=== PATIENT | female | born 1965 | race Caucasian/White ===

== ENCOUNTER 2016-10-15 13:29 | Emergency (ER) | payer BC ==
[~2016-10-15] VITALS: Ht 167.6 cm; Wt 57.1 kg
[2016-10-15 13:32] VITALS: TEMP 36.9; Ht 167.6 cm; Wt 57.1 kg
--- NOTE | 2016-10-15 15:09 | EMERGENCY ROOM VISIT NOTE ---
History Report prepared by Dainaa: Johnathon Mathew Under the Supervision of: Dr. Antonio Cherry M.D. First contact with patient: 14:50 Chief Complaint: OTHER COMPLAINT Stated Complaint: LIGHTHEADEDNESS,FACE NUMBING,SHOULDER PAIN History of Present Illness The patient is a 51 year old female with anxiety disorder who presents to the Emergency Room with complaints of worsening lightheadedness that started the past 2 days. She says that her daughter was in the hospital a few weeks ago, and shortly thereafter, the patient fainted one night and hit her tailbone. She did not hit her head. She says that she slumped down against a wall. Ever since then, the patient says that she has had off and on lightheadedness, but it has worsened and become more constant the past few days. The patient was not able to sleep much the past few nights, and had to take NyQuil one night. She says that she took a cup of coffee this morning without anything to eat. She did eat lunch and it did not help her. The patient also notes numbness in the middle of her face, pain around her left shoulder, and a cold feeling in her feet and hands. She says that she has never had symptoms like this before. The patient denies any shortness of breath or chest pain. She has eaten okay other than today. The patient takes Cymbalta for her anxiety. She has not been in any recent car accidents and has not had any recent trauma. Source of History: patient Onset: Past 2 days Position: other (global - lightheadedness) Timing: worsening Associated Symptoms: + numbness (middle of face), No SOB, No chest pain Note: Associated symptoms: Fainted a few weeks ago. Pain around left shoulder, cold feeling in feet and hands. Feels anxious currently. Review of Systems See HPI for pertinent positives & negatives. A total of 10 systems reviewed and were otherwise negative. Past Medical & Surgical Medical Problems: (1) No chronic problems (2) Skin problem Surgical Problems: (1) H/O: hysterectomy Family History FHx: cancer FHx: heart disease Hypertension Social History Smoking Status: Never Smoker Smokeless Tobacco Use: No Alcohol Use: occasionally Marital Status: Housing Status: lives with family Occupation Status: unemployed Current/Historical Medications Scheduled Duloxetine Hcl (Cymbalta), 60 MG PO DAILY Ivermectin (Rosacea) (Soolantra), 1 APPLN TOP DAILY Methenamine Hippurate (Methenamine Hippurate), 1 GM PO BID Puztrqtedwnzr-Jhzoxwyodw-Ietyb (Vicks Nyquil Severe Cold), 1 DOSE PO HS Ranitidine (Zantac), 300 MG PO HS Trazodone Hcl (Desyrel), 75 MG PO HS Allergies Coded Allergies: No Known Allergies (Unverified , 10/15/16) Physical Exam Vital Signs Date Time Temp Pulse Resp B/P Pulse Ox O2 Delivery O2 Flow Rate FiO2 10/15/16 16:49 65 19 136/84 97 10/15/16 15:57 68 16 152/87 99 Room Air 10/15/16 15:07 84 14 136/82 99 Room Air 10/15/16 13:32 36.9 90 18 162/83 98 Room Air Physical Exam GENERAL: Patient is anxious appearing, in minimal distress. HEENT: No acute trauma, normocephalic atraumatic, mucous membranes moist, no nasal congestion, no scleral icterus. NECK: No stridor, no adenopathy, no meningismus, trachea is midline. LUNGS: No dyspnea. Clear to auscultation and equal bilaterally. No wheeze, no rhonchi. HEART: Regular rate and rhythm. No murmurs, rubs, gallops appreciated. ABDOMEN: Soft, nontender, bowel sounds positive, no masses appreciated, no peritonitis. BACK: No midline tenderness, no CVA tenderness EXTREMITIES: Normal motion all extremities, no cyanosis, no edema. NEUROLOGIC: Alert and oriented, no acute motor or sensory deficits, no focal weakness, cranial nerves grossly intact. SKIN: No rash, no jaundice, no diaphoresis. Medical Decision & Procedures ER Provider Diagnostic Interpretation: Radiology results and stated below per my review and radiologist interpretation: HEAD CT NONCONTRAST CT DOSE: 638.56 mGycm HISTORY: Generalized Weakness TECHNIQUE: Multiaxial CT images of the head were performed without the use of intravenous contrast. Comparison: None. Findings: The paranasal sinuses and mastoid air cells are clear. The calvarium and skull base are intact. The ventricles and sulci are within normal limits. There is no mass, hematoma, midline shift, or acute infarct. Impression: No acute intracranial abnormality. Electronically signed by: Conner Lyon M.D. 10/15/2016 3:56 PM Dictated Date/Time: 10/15/2016 3:49 PM CHEST ONE VIEW PORTABLE CLINICAL HISTORY: Generalized Weakness dyspnea COMPARISON STUDY: No previous studies for comparison. FINDINGS: The bones soft tissues and hemidiaphragms are normal. The cardiomediastinal silhouette is normal. The lungs are clear. The pulmonary vasculature is normal. IMPRESSION: Negative chest. Electronically signed by: Conner Lyon M.D. 10/15/2016 3:25 PM Dictated Date/Time: 10/15/2016 3:24 PM Laboratory Results 10/15/16 15:27 Red Blood Count 4.86, Mean Corpuscular Volume 87.4, Mean Corpuscular Hemoglobin 31.7, Mean Corpuscular Hemoglobin Concent 36.2, Mean Platelet Volume 8.8, Neutrophils (%) (Auto) 62.5, Lymphocytes (%) (Auto) 27.7, Monocytes (%) (Auto) 8.6, Eosinophils (%) (Auto) 0.4, Basophils (%) (Auto) 0.4, Neutrophils # (Auto) 3.28, Lymphocytes # (Auto) 1.45, Monocytes # (Auto) 0.45, Eosinophils # (Auto) 0.02, Basophils # (Auto) 0.02 10/15/16 15:27 Test 10/15/16 15:15 10/15/16 15:27 Urine Color YELLOW Urine Appearance CLEAR (CLEAR) Urine pH 8.0 (4.5-7.5) Urine Specific [place] 1.006 (1.000-1.030) Urine Protein NEG (NEG) Urine Glucose (UA) NEG (NEG) Urine Ketones NEG (NEG) Urine Occult Blood NEG (NEG) Urine Nitrite NEG (NEG) Urine Bilirubin NEG (NEG) Urine Urobilinogen NEG (NEG) Urine Leukocyte Esterase NEG (NEG) Urine WBC (Auto) 0 /hpf (0-5) Urine RBC (Auto) 0-4 /hpf (0-4) Urine Hyaline Casts (Auto) 0 /lpf (0-5) Urine Epithelial Cells (Auto) 0-5 /lpf (0-5) Urine Bacteria (Auto) NEG (NEG) White Blood Count 5.24 K/uL (4.8-10.8) Red Blood Count 4.86 M/uL (4.2-5.4) Hemoglobin 15.4 g/dL (12.0-16.0) Hematocrit 42.5 % (37-47) Mean Corpuscular Volume 87.4 fL (80-100) Mean Corpuscular Hemoglobin 31.7 pg (25-34) Mean Corpuscular Hemoglobin Concent 36.2 g/dl (32-36) Platelet Count 226 K/uL (130-400) Mean Platelet Volume 8.8 fL (7.4-10.4) Neutrophils (%) (Auto) 62.5 % Lymphocytes (%) (Auto) 27.7 % Monocytes (%) (Auto) 8.6 % Eosinophils (%) (Auto) 0.4 % Basophils (%) (Auto) 0.4 % Neutrophils # (Auto) 3.28 K/uL (1.4-6.5) Lymphocytes # (Auto) 1.45 K/uL (1.2-3.4) Monocytes # (Auto) 0.45 K/uL (0.11-0.59) Eosinophils # (Auto) 0.02 K/uL (0-0.5) Basophils # (Auto) 0.02 K/uL (0-0.2) RDW Standard Deviation 40.8 fL (36.4-46.3) RDW Coefficient of Variation 12.7 % (11.5-14.5) Immature Granulocyte % (Auto) 0.4 % Immature Granulocyte # (Auto) 0.02 K/uL (0.00-0.02) Anion Gap 11.0 mmol/L (3-11) Est Creatinine Clear Calc Drug Dose 63.9 ml/min Estimated GFR () 80.9 Estimated GFR (Non- 69.8 BUN/Creatinine Ratio 11.6 (10-20) Calcium Level 10.1 mg/dl (8.5-10.1) Total Bilirubin 0.4 mg/dl (0.2-1) Direct Bilirubin < 0.1 mg/dl (0-0.2) Aspartate Amino Transf (AST/SGOT) 15 U/L (15-37) Alanine Aminotransferase (ALT/SGPT) 23 U/L (12-78) Alkaline Phosphatase 108 U/L (45-117) Troponin I < 0.015 ng/ml (0-0.045) Total Protein 7.7 gm/dl (6.4-8.2) Albumin 4.3 gm/dl (3.4-5.0) Lipase 220 U/L (73-393) Laboratory results as reviewed by me. ECG Indication: other (lightheadedness) Rate (beats per minute): 63 Rhythm: normal sinus Findings: PAC, no acute ischemic change ED Course 1451: The patient was evaluated in room C7. A complete history and physical exam was performed. 1639: Reevaluated the patient, and she feels fine. I advised her to follow up with her primary care physician. I also discussed results and discharge instructions: she verbalized understanding and agreement. The patient is ready for discharge. Medical Decision Differential diagnoses include Benign positional vertigo, Dehydration, Hypovolemia, Anemia, Tumor, Infection, Hypoglycemia, Electrolyte abnormalities, Cardiac sources, Intracerebral event, Toxicologic, Neurologic, as well as others were entertained. 51 yr old female arrives with complaint of feeling lightheaded and anxious. Worse after not sleeping last few days and drinking just coffee for breakfast. She looks fine and in no distress. Labs unremarkable. CT head negative. CXR clear. No evidence of ACS. No symptoms of PE nor dissection. Stable and feeling well. She will need to follow up with PCP for further evaluation. Impression Primary Impression: Light-headedness Additional Impression: Hypertension Scribe Attestation The scribe's documentation has been prepared under my direction and personally reviewed by me in its entirety. I confirm that the note above accurately reflects all work, treatment, procedures, and medical decision making performed by me. Departure Information Dispostion Home / Self-Care Referrals No Doctor, Assigned (PCP) Patient Instructions ED Dizziness O, My [facility] Health Problem Qualifiers Additional Impression: Hypertension Hypertension type: essential hypertension Qualified Codes: I10 - Essential ( primary) hypertension
--- NOTE | 2016-10-15 15:26 | DIAGNOSTIC IMAGING REPORT ---
CHEST ONE VIEW PORTABLE CLINICAL HISTORY: Generalized Weakness dyspnea COMPARISON STUDY: No previous studies for comparison. FINDINGS: The bones soft tissues and hemidiaphragms are normal. The cardiomediastinal silhouette is normal. The lungs are clear. The pulmonary vasculature is normal. IMPRESSION: Negative chest. Electronically signed by: Conner Lyon M.D. 10/15/2016 3:25 PM Dictated Date/Time: 10/15/2016 3:24 PM
[2016-10-15] MEDS ORDERED: IVER1CRE TOP (15:36)
[2016-10-15] MEDS ORDERED: METH1TAB5 PO (15:36)
[2016-10-15] MEDS ORDERED: DULO60CA44 PO (15:36)
[2016-10-15] MEDS ORDERED: PHEN1LIQ PO (15:36)
[2016-10-15] MEDS ORDERED: TRAZ1TAB52 PO (15:36)
[2016-10-15] MEDS ORDERED: RANI300T2 PO (15:36)
[2016-10-15 15:44] LABS: BASO % 0.4 %; BASO ABS # 0.02 K/uL (0-0.2); COMPLETE YES; EOS % 0.4 %; HEMATOCRIT 42.5 % (37-47); IG% 0.4 %; LYMPH % 27.7 %; LYMPH ABS # 1.45 K/uL (1.2-3.4); MEAN CELL VOLUME 87.4 fL (80-100); MEAN CORPUSCULAR HEMOGLOBIN 31.7 pg (25-34); MEAN CORPUSCULAR HGB CONC 36.2 g/dl (32-36); MEAN PLATELET VOLUME 8.8 fL (7.4-10.4); MONO % 8.6 %; NEUT % 62.5 %; PLATELET COUNT 226 K/uL (130-400); RED BLOOD COUNT 4.86 M/uL (4.2-5.4); WHITE BLOOD COUNT 5.24 K/uL (4.8-10.8)
[2016-10-15 15:46] LABS: MANUAL MICROSCOPIC REQUIRED? NO; REVIEW REQ? NO; URINE APPEARANCE CLEAR (CLEAR); URINE BILIRUBIN NEG (NEG); URINE COLOR YELLOW; URINE EPITHELIAL CELL AUTO 0-5 /lpf (0-5); URINE NITRITE NEG (NEG); URINE SPECIFIC GRAVITY 1.006 (1.000-1.030); UROBILINOGEN NEG (NEG); ZZUR CULT IF INDIC CLEAN CATCH NO
--- NOTE | 2016-10-15 15:58 | DIAGNOSTIC IMAGING REPORT ---
HEAD CT NONCONTRAST CT DOSE: 638.56 mGycm HISTORY: Generalized Weakness TECHNIQUE: Multiaxial CT images of the head were performed without the use of intravenous contrast. Comparison: None. Findings: The paranasal sinuses and mastoid air cells are clear. The calvarium and skull base are intact. The ventricles and sulci are within normal limits. There is no mass, hematoma, midline shift, or acute infarct. Impression: No acute intracranial abnormality. Electronically signed by: Conner Lyon M.D. 10/15/2016 3:56 PM Dictated Date/Time: 10/15/2016 3:49 PM
[2016-10-15 16:05] LABS: ALT/SGPT 23 U/L (12-78); BLOOD UREA NITROGEN 11 mg/dl (7-18); BUN/CREATININE RATIO 11.6 (10-20); CALCIUM 10.1 mg/dl (8.5-10.1); CARBON DIOXIDE 28 mmol/L (21-32); CHLORIDE 105 mmol/L (98-107); CREATININE 0.95 mg/dl (0.60-1.20); GLUCOSE 92 mg/dl (70-99); POTASSIUM 3.9 mmol/L (3.5-5.1); SODIUM 144 mmol/L (136-145)
[2016-10-15 16:10] LABS: ALKALINE PHOSPHATASE 108 U/L (45-117); AST/SGOT 15 U/L (15-37)
[2016-10-15 16:49] VITALS: BP 136/84; PULSE 65; O2SAT 97
== END 2016-10-15 16:55 | disposition home or self-care (01) ==
LOC: C.EDB 13:31 → C.EDC 16:55
DX: R42 Dizziness and giddiness (principal); I10 Essential (primary) hypertension; Z83.3 Family history of diabetes mellitus; Z82.49 Family history of ischemic heart disease and other diseases of the circulatory system